=== PATIENT | male | born 1975 | race African-American/Black ===

== ENCOUNTER 2017-03-02 19:28 | Emergency (ER) | payer MEDICAID ==
[~2017-03-02] VITALS: Ht 190.5 cm; Wt 122.5 kg
[~2017-03-02 19:28] MED LIST: ATEN-41 PO
[2017-03-02 19:39] VITALS: BP_SYST 161
--- NOTE | 2017-03-02 19:56 | NUR ---
Patient to ER bed 5 to gown for evaluation. Side rails up. Report given to Kinjal STARKEY.
--- NOTE | 2017-03-02 20:12 | NUR ---
Patient to ER C/O severe dizziness with spinning sensation since this morning. Denies N/V, no blurry or double vision, no other medical complaints. AAox4, unlabored breathing, no signs of acute distress.
--- NOTE | 2017-03-02 20:26 | NUR ---
ER MD Leon at bedside for evaluation
[2017-03-02] MEDS ORDERED: NACL 0.9% 1,000 ML IV ONE ×2 (20:45→21:30)
[2017-03-02] MEDS ORDERED: MECLIZINE HCL 25 MG TABLET (ANITVERT) PO ONE (20:45)
[2017-03-02] MEDS ORDERED: ASPIRIN 81 MG TAB.CHEW PO ONE (20:45)
--- NOTE | 2017-03-02 21:05 | NUR ---
# 22 gauge angiocath placed to left ac. Use of asceptic technique. Opsite placed over site. Blood return noted. Flushed with 10 cc of normal saline. No evidence of infiltration noted. Patient tolerated well.
[2017-03-02 21:12] LABS: BASOPHILS # (AUTO) 0.2 K/uL (0.0-0.2); BASOPHILS % (AUTO) 2.1 % (0.0-2.0); EOSINOPHILS % (AUTO) 0.2 % (0.0-4.0); HEMATOCRIT 48.9 % (36-54); HEMOGLOBIN 15.8 g/dL (14.0-18.0); LYMPHOCYTES # (AUTO) 2.3 K/uL (1.0-5.5); LYMPHOCYTES % (AUTO) 29.7 % (20.5-51.5); MEAN CORPUSCULAR HEMOGLOBIN 28 pg (27-31); MEAN CORPUSCULAR HGB CONC 32 % (32-36); MEAN CORPUSCULAR VOLUME 85 fL (79.0-98.0); MONOCYTES # (AUTO) 0.4 K/uL (0.0-1.0); MONOCYTES % (AUTO) 5.6 % (1.7-9.3); NEUTROPHILS # (AUTO) 4.9 K/uL (1.8-7.7); NEUTROPHILS % (AUTO) 62.4 % (40.0-70.0); PLATELET COUNT (AUTO) 351 K/uL (130-430); RED BLOOD CELL COUNT(AUTO) 5.76 MIL/uL (4.2-6.2); RED CELL DISTRIBUTION WIDTH 14.1 % (9.0-15.0); WHITE BLOOD COUNT (AUTO) 7.8 K/uL (4.8-10.8)
[2017-03-02 21:27] LABS: PROTHROMBIN TIME 10.9 SECS (9.5-12.5)
[2017-03-02 21:43] LABS: CALCIUM 8.9 mg/dL (8.4-11.0); CREATININE 1.14 mg/dL (0.55-1.30); POTASSIUM 3.8 mmol/L (3.5-5.1)
[2017-03-02 21:47] LABS: TOTAL BILIRUBIN 0.3 mg/dL (0.0-1.0); TOTAL PROTEIN, SERUM 8.1 g/dL (6.4-8.3)
[2017-03-02 22:00] LABS: BILIRUBIN,URINE NEGATIVE (NEGATIVE); BLOOD, URINE NEGATIVE (NEGATIVE); CLARITY/URINE CLEAR (CLEAR); COLOR,URINE YELLOW (YELLOW); GLUCOSE,URINE NEGATIVE (NEGATIVE); KETONES,URINE NEGATIVE (NEGATIVE); LEUKOCYTE ESTERASE ,URINE NEGATIVE (NEGATIVE); NITRITE, URINE NEGATIVE (NEGATIVE); PH,URINE 7.5 (5.0-8.0); PROTEIN URINE NEGATIVE (NEGATIVE); UROBILINOGEN,URINE 0.2 (0.2-1.0)
[2017-03-02 22:56] VITALS: BP_SYST 157
--- NOTE | 2017-03-02 22:56 | NUR ---
Patient given written and verbal discharge instructions and verbalizes understanding. ER MD discussed with patient the results and treatment provided. Patient in stable condition. ID arm band removed. IV catheter removed intact and dressing applied, no active bleeding. Rx of given. Patient educated on pain management and to follow up with PMD. Pain Scale 0/10. Opportunity for questions provided and answered.
== END 2017-03-02 22:56 | disposition home or self-care (01) ==
LOC: SED 19:28
DX: H81.10 Benign paroxysmal vertigo, unspecified ear (principal); I10 Essential (primary) hypertension; F43.10 Post-traumatic stress disorder, unspecified
CPT/HCPCS: 36415; 71010; 80053; 81003; 82550; 83735; 84100; 84484; 85025; 85610; 85730; 93005; 96360; 99285; J7030; J8597